=== PATIENT | female | born 1945 | race African-American/Black ===

== ENCOUNTER 2017-04-26 08:34 | Day surgery (SDC) | payer MEDICARE, BC ==
[2017-04-26] VITALS (16 sets, daily range): BP systolic 101–179; BP diastolic 55–96
[~2017-04-26] VITALS: Ht 162.6 cm; Wt 74.4 kg
--- NOTE | 2017-04-26 06:57 | Pre-Procedure Note/Attestation ---
Pre-Procedure Note/Attestation Complete Prior to Procedure Planned Procedure: right Procedure Narrative: rt shoulder scope, sad, mini acosta, rtc repair, possible biceps tenodesis vs tenotomy Indications for Procedure Pre-Operative Diagnosis: rt shoulder rtc tear, biceps tendonitis Attestation I attest that I discussed the nature of the procedure; its benefits; risks and complications; and alternatives (and the risks and benefits of such alternatives ), prior to the procedure, with the patient (or the patient's legal sales representative door to door). I attest that, if there was a reasonable possibility of needing a blood transfusion, the patient (or the patient's legal sales representative door to door) was given the [place] [employer] standardized written summary, pursuant to the Kole Myrna Blood Safety Act ([place] Health and Safety Code # 1645, as amended). I attest that I re-evaluated the patient just prior to the surgery and that there has been no change in the patient's H&P, except as documented below:NONE LINDA MCCLOUD Apr 26, 2017 06:57
[~2017-04-26 08:34] MED LIST: D5 1/2NS 1,000 ML IV SCH; HYDROmorphone 1mg/ml Carpuject SUBQ PRN; Norco 5mg/325mg tab ORAL PRN; ceFAZolin 1gm in D5W 55ml IVP ONE; celeBREX 200mg Cap **SURGERY PATIENTS ONLY ORAL ONE
[2017-04-26] MEDS ORDERED: Ropivacaine 5mg/ml Vial 30ml INJ ONE (09:28)
[2017-04-26] MEDS ORDERED: NS Irrig 4000ml IRRIG ONE ×2 (09:30→10:45)
[2017-04-26] MEDS ORDERED: Ketorolac 30mg Inj ONE (09:30)
[2017-04-26] MEDS ORDERED: Propofol 200mg/20ml IV ONE (09:30)
[2017-04-26] MEDS ORDERED: Nimbex 2mg/ml Inj 10ML IVP ONE (09:30)
[2017-04-26] MEDS ORDERED: Zemuron 50mg/5ml Inj IV ONE (09:30)
[2017-04-26] MEDS ORDERED: NS Irrig 1000ml ONE (09:30)
[2017-04-26] MEDS ORDERED: Succinylcholine 20mg/ml 10ml vial ONE (09:30)
[2017-04-26] MEDS ORDERED: fentaNYL 100 mcg/2 mL IV ONE (09:30)
[2017-04-26] MEDS ORDERED: LR 1000ml ONE (09:30)
[2017-04-26] MEDS ORDERED: Midazolam 2mg/2ml Inj ONE (09:30)
[2017-04-26] MEDS ORDERED: COREG CR20 MG ORAL (09:31)
[2017-04-26] MEDS ORDERED: HUMALOG100 UNIT/4 SUBQ (09:31)
[2017-04-26] MEDS ORDERED: HYDRALAZINE HCL25 M2 PO (09:31)
[2017-04-26] MEDS ORDERED: HYDROCHLOROTHIA25 MG ORAL (09:31)
[2017-04-26] MEDS ORDERED: SOLOSTAR SQ (09:31)
[2017-04-26] MEDS ORDERED: FARXIGA10 MG PO (09:34)
[2017-04-26] MEDS ORDERED: LR 1000ml 1,000 ML IVLG SCH (11:10)
--- NOTE | 2017-04-26 11:10 | Anethesia Preoperative Eval ---
Anesthesia Pre-op PMH/ROS General Date of Evaluation: Apr 26, 2017 Time of Evaluation: 09:50 Anesthesiologist: Bobby ASA Score: ASA 3 Mallampati Score Class I : Soft palate, uvula, fauces, pillars visible Class II: Soft palate, uvula, fauces visible Class III: Soft palate, base of uvula visible Class IV: Only hard plate visible Mallampati Classification: Class III Surgeon: Kd Diagnosis: R shoulder pain Surgical Procedure: R shoulder scope Anesthesia History: none Family History: no anesthesia problems Allergies: Coded Allergies: CODEINE (Verified Allergy, Severe, HIVES, ITCHING , 04/26/17) LATEX (Verified Allergy, Severe, ITCHING, BUMPS, , 04/26/17) Past Medical History Cardiovascular: Reports: HTN, Denies: CAD, AR, valve dz, arrhythmia, other Pulmonary: Denies: asthma, COPD, DULCE MARIA, other Gastrointestinal/Genitourinary: Reports: GERD - mild, Denies: CRI, ESRD, other Neurologic/Psychiatric: Denies: dementia, CVA, depression/anxiety, TIA, other Endocrine: Reports: DM - on high dose of insulin poorly contrilled, Denies: hypothyroidism, steroids, other HEENT: Denies: cataract (L), cataract (R), glaucoma, NOATAK (L), NOATAK (R), other Hematology/Immune: Denies: anemia, DVT, bleeding disorder, other Musculoskeletal/Integumentary: Reports: DJD, Denies: OA, RA, DDD, edema, other Other: other - overweight PMH Narrative: as above PSxH Narrative: Resection of pituitary gland, bilateral breast redaction Knee arthroplasty Anesthesia Pre-op Phys. Exam Physician Exam Last Vital Signs Date Time Temp Pulse Resp B/P (MAP) Pulse Ox O2 Delivery O2 Flow Rate FiO2 04/26/17 09:21 97.8 61 17 101/55 94 Room Air Constitutional: NAD Neurologic: CN 2-12 intact Cardiovascular: RRR, no M/R/G Respiratory: CTA Gastrointestinal: S/NT/ND Airway Exam Mallampati Score: Class III Neck: short ROM: limited Teeth: missing Dentures: no upper, no lower Anesthesia Pre-op A/P Labs see chart Studies Pre-op Studies: EKG - SR, echo - EF>60% Risk Assessment & Plan Assessment: ASA 3 Plan: GA with ETT R brachial plexus block for postoperative pain control Status Change Before Surgery: No Pre-Antibiotics Drug: Ancef 1gr. Given Within 1 Hr of Incision: Yes Time Given: 10:12 EVONNE GROVE M.D. Apr 26, 2017 11:10
[2017-04-26] MEDS ORDERED: Midazolam 2mg/2ml Inj IVP PRN (11:15)
[2017-04-26] MEDS ORDERED: Ketorolac 30mg Inj IV PRN (11:15)
[2017-04-26] MEDS ORDERED: DiphenhydrAMINE 50mg/ml Inj IVP PRN (11:15)
[2017-04-26] MEDS ORDERED: Hydromorphone 0.5mg/0.5ml inj IVP PRN (11:15)
[2017-04-26] MEDS ORDERED: EPINEPHrine 1mg/1ml Amp ONE ×2 (11:21→11:46)
--- NOTE | 2017-04-26 12:42 | Brief Operative Note ---
Immediate Post Operative Note Operative Note Chief Complaint: rt shoulder pain Pre-op Diagnosis: rt shoulder rtc tear Procedure: rt shoulder scope, sad, mini acosta, rtc repair, biceps tenodesis Post-op Diagnosis: same as pre-op Findings: consistent w/pre-op dx studies Surgeon: md kelvin Sprinkler Driver: zion jackman Anesthesiologist: md sharee Anesthesia: general, regional Specimen: none Complications: none Condition: stable Fluids: ns Estimated Blood Loss: minimal Drains: none Implant(s) used?: Yes ADRIAN JACKMAN Apr 26, 2017 12:42
--- NOTE | 2017-04-26 13:11 | Immediate Post-Op Evaluation ---
Immediate Post-Op Evalulation Immediate Post-Op Evalulation Procedure: R shoulder arthroscopy, rotator cuff and biceps tendon repair Date of Evaluation: Apr 26, 2017 Time of Evaluation: 13:10 IV Fluids: 1100 Blood Products: none Estimated Blood Loss: <50 Urinary Output: none Blood Pressure Systolic: 156 Blood Pressure Diastolic: 78 Pulse Rate: 76 Respiratory Rate: 20 O2 Sat by Pulse Oximetry: 98 Temperature (Fahrenheit): 98.1 Pain Score (1-10): 1 Nausea: No Vomiting: No Complications none Patient Status: reacts, patent, extubated, none Hydration Status: adequate EVONNE GROVE M.D. Apr 26, 2017 13:11
--- NOTE | 2017-04-26 13:51 | 48 Hour Post Anesthesia Eval ---
Post Anesthesia Evaluation Procedure: R shoulder arthroscopy, rotator cuff and biceps tendon repair Date of Evaluation: Apr 26, 2017 Time of Evaluation: 13:50 Blood Pressure Systolic: 164 0: 83 Pulse Rate: 74 Respiratory Rate: 20 Temperature (Fahrenheit): 97.8 O2 Sat by Pulse Oximetry: 98 Airway: patent Nausea: No Vomiting: No Pain Intensity: 3 Hydration Status: adequate Cardiopulmonary Status: stable Mental Status/LOC: patient returned to baseline Follow-up Care/Observations: n/a Post-Anesthesia Complications: none Follow-up care needed: ready to discharge EVONNE GROVE M.D. Apr 26, 2017 13:51
--- NOTE | 2017-04-26 18:15 | Operative Note - Dictated ---
DATE OF OPERATION: 04/26/2017 PREOPERATIVE DIAGNOSES: 1. Right shoulder rotator cuff tear. 2. Right shoulder biceps tendon tear. POSTOPERATIVE DIAGNOSES: 1. Right shoulder large subacromial bone spur. 2. Right shoulder L-shaped rotator cuff tear, measuring 2.5 cm. 3. Right shoulder degenerative intra-articular biceps tendon. 4. 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 PROCEDURE: 1. Right shoulder arthroscopy and extensive intra-articular shaving. 2. Right shoulder biceps tenotomy and biceps tenodesis in the intertubercular groove arthroscopically using a Arthrex ToggleLoc 6.25 mm anchor. 3. Right shoulder subacromial bursoscopy, bursectomy, and subacromial decompression. 4. Right shoulder mini-Rajwinder procedure (resection of inferior 30% distal end of the clavicle for coplaning). 5. Right shoulder arthroscopic rotator cuff repair with fixation of the L-shaped tear using 2 Biomet 2.9 mm JuggerKnot anchors. SURGEON: Cuong Vleásquez M.D. ASSEMBLY CLEANER: Sheila Riddle PA-C Laboratory Chemist was present during the actual operative portion of the case and was important and essential part of the operation. During the operation, the library serials assistant held and operated the arthroscopic camera for visualization, assisted by manipulating the arm to help with visualization, and helped with essential parts of the repair process as necessary such as operating surgical instruments under surgeon supervision, suture management, and wound closures. ANESTHESIOLOGIST: Miguel Rosales M.D. ANESTHESIA: General LMA anesthesia. EBL: Less than 20 mL. COMPLICATIONS: None SURGICAL INDICATION: Patient is a 71-year-old female who sustained the above injury to her shoulder. The patient was treated non-operative initially, but this did not alleviate the patients symptoms. Therefore, after discussing all non-surgical and surgical options, and discussing all foreseeable risk and benefits of surgery, the patient opted for surgical treatment as described above. PATIENT POSITIONING: Patient was brought to the operating room table and was placed on the operating room table. All pressure points were well padded. General anesthesia was induced and patient was then placed in the lateral decubitus position. All pressure points were well padded again and an axillary roll was placed. Patient shoulder was then prepped and draped in the usual sterile fashion. Time out was performed and the appropriate preoperative antibiotic was given by the anesthesiologist. EXAMINATION OF SHOULDER UNDER ANESTHESIA: The shoulder was examined under anesthesia with all muscles well relaxed. The shoulder was forward flexed, abducted and was placed through full range of external and internal rotation. The anterior, posterior, and inferior stability of the shoulder was checked. The exam revealed no evidence of adhesive capsulitis and no evidence of instability. PORTAL PLACEMENT: The posterior portal was established 2 cm inferior and 1 cm medial to the edge of the posterior acromion. 1 cm skin incision was made using an eleven blade and using the blunt obturator, the cannula was gently placed through the capsule. The midglenoid portal was established just lateral to the coracoid process under direct visualization. Direction of the cannula was first established using a spinal needle, and subsequently, the cannula was placed through the capsule with a blunt obturator. DIAGNOSTIC ARTHROSCOPY: The biceps tendon was probed and pulled through the joint for visualization. There was extensive degeneration of biceps tendon with fraying intra-articularly. This involved 75% of the biceps tendon. The biceps anchor was palpated with a probe and was visualized. It appeared well attached and there was no evidence of SLAP tear. The posterior labrum and axillary recess was visualized. This was normal and there was no evidence of loose cartilage or fragments in this area. The glenoid articular surface was visualized and it appeared normal. The articular surface of the rotator cuff was visualized and probed next. There was a full-thickness rotator cuff tear measuring 2.5 cm. This later proved to be a L-shaped tear once viewed from the subacromial space. The Humeral head articular surface was then visualized. There was no evidence of articular cartilage damage. Next the anterior labrum, middle gleno-humeral ligament, subscapularis tendon, and the anterior inferior gleno-humeral ligament were evaluated. These structures were completely normal. At this point, the scope was moved to the midglenoid portal and the posterior structures including the posterior labrum, posterior capsule and posterior cuff were visualized. These structures were completely normal. The subscapularis recess was devoid of any loose bodies and the anterior capsule was well attached to the humeral neck. The middle and anterior inferior glenohumeral ligament was visualized. These structures were completely normal. OPERATIVE DEBRIDEMENTS AND REPAIR: Care was given to all partial thickness tears and frayed structures in the shoulder joint. The frayed rotator cuff and labrum was debrided using a shaver initially through the anterior portal and subsequently through the posterior portal to complete the debridement. This allowed for smooth debridement of all affected structures and all loose fragments were removed. At this point, a biceps tenotomy was performed and a suture and a FiberWire suture was placed to the biceps tendon prior to tenotomizing it to allow control and for later fixation in the bicipital tuberosity. DIAGNOSTIC BURSASCOPY AND SUBACROMIAL DECOMPRESSION: The subacromion bursa was entered from the posterior portal. The anterior portal was established under the CA ligament using a switching stick. Subacromial arthroscopy was initiated. There was extensive bursitis and thickened and inflamed bursa tissue present. The CA ligament appeared to be scuffed and frayed. The shaver was placed through the anterior cannula and debridement of the hypertrophic bursa tissue was accomplished. Once visualization was adequate, a lateral portal was established using a blunt trochar in the mid portion of the acromion bone in the anterior-posterior direction and approximately 2 cm lateral to the lateral edge of the acromion. Using combination of shaver and electrocautery the CA ligament was released from the undersurface of the acromion and a complete bursectomy was accomplished. At this point, a subacromial decompression was performed using a jaqueline initially taking off 5-8 mm of the anterolateral edge of the acromion from the lateral portal and viewing from the posterior portal. Then the lateral border of the undersurface of the acromion was decompressed to the same dept as the anterolateral edge. A posterior trough was then created in the acromion in line with the posterior edge of the clavicle. At this point, the scope was placed in the lateral portal and the subacromial decompression was performed from the posterior portal decompressing the undersurface of the acromion to dept of 5-8 mm. The decompression was performed anterior to the previously marked trough all the way medially to the level of the AC joint. At all times, care was given not to take off too much bone in order to avoid risk of fracture of the acromion. An excellent subacromial decompression was performed in this fashion. At this point, the bursal side of the rotator cuff was examined. All the bursa over the rotator cuff was removed and the rotator cuff was examined with a probe. The arm was placed into external rotation, neutral, and then internal rotation and There was evidence of a L-shaped rotator cuff tear measuring 2.5 cm. The scope was then placed in the posterior portal and the subacromial decompression was rechecked to assure there is no area of bone spur that would be still impinging onto the rotator cuff. EVALUATION OF DISTAL CLAVICLE AND DISTAL CLAVICLE RESECTION: Care was given to the distal end of the clavicle. Using electrocautery and beronica, the distal end of the bursa and soft tissue around the distal end of the clavicle was debrided and cleaned. Care was given not to inflict excessive trauma to the ligaments of the AC joint. The distal end of the clavicle appeared to have an inferior osteophyte extending down well bellow the level of the acromion at the level of the AC joint. This appeared to be impinging onto the supraspinatus muscle belly and the musculotendinous junction of the rotator cuff. A mini-Rajwinder procedure was performed by using a jaqueline to resect the inferior 30% of the distal end of the clavicle. This decompression allowed space for the inferior structures to slide without impingement. This co-plained the inferior edge of the distal clavicle with the inferior edge of the acromion The scope was placed in the lateral portal and the rotator cuff was visualized. The rotator cuff revealed a L-shaped 2.5 cm rotator cuff tear. The rotator cuff foot print adjacent to the articular cartilage of the humeral head was identified. This area was debrided initially using beronica and subsequently using jaqueline to provide adequate bleeding bony surface to accept the rotator cuff tendon. Attention was given to repair the rotator cuff with as little tension as possible. At this point, an arthroscopic punch was used to create holes for suture anchor placement at the medial edge of the foot print through separate stab wound incisions and an arthroscopic tap was used to prepare the holes. Two Biomet 2.9 mm JuggerKnot anchors double loaded with two #2 non-absorbable strong sutures were placed in previously prepared holes. Using standard arthroscopic suture passing instruments, the sutures were passed through the edge of rotator cuff with minimal trauma to the cuff tissue. Care was given to obtain large enough bites of the rotator cuff for the sutures to hold well. Once the sutures were passed through the cuff, the repair was secured onto the rotator cuff foot print using SMC sliding knots followed by 3 alternating-post half hitches. This allowed tension free repair of the rotator cuff with excellent stability and water tight closure. The cuff repair security was assured by palpating the repair with a probe. Once the rotator cuff repair was completed, care was given to biceps tendon tenodesis. The area of the intertubercular groove was debrided and using the ArthroCare device, this was cleaned out. At this point, a 6.5 mm drill was used to drill a socket within the intertubercular groove, and a 6.25 mm anchor was used to dunking the biceps tendon into the into the socket. This provided excellent stability and excellent repair of the biceps tendon was obtained. Once this was completed, care was given to the evaluation of the repair. The repair of the biceps tendon was checked and rechecked using a probe. There was excellent stability of the biceps tendon. CONDITION AT DISCHARGE FROM OPERATING ROOM: The skin was re-approximated and sterile dressing and sling were applied. All lap counts and instrument counts were correct. Patient tolerated the procedure well without complications and was taken to the recovery room in stable conditions. Cuong Velásquez M.D. DR: WILLA JOB#: [id number] CC:
== END 2017-04-26 15:45 | disposition home or self-care (01) ==
LOC: SUR 08:34
DX: M75.101 Unspecified rotator cuff tear or rupture of right shoulder, not specified as traumatic (principal); M75.91 Shoulder lesion, unspecified, right shoulder; M19.011 Primary osteoarthritis, right shoulder; E11.9 Type 2 diabetes mellitus without complications; I10 Essential (primary) hypertension; Z96.659 Presence of unspecified artificial knee joint; Z88.2 Allergy status to sulfonamides; Z82.49 Family history of ischemic heart disease and other diseases of the circulatory system; K21.9 Gastro-esophageal reflux disease without esophagitis; E78.5 Hyperlipidemia, unspecified; Z79.4 Long term (current) use of insulin
CPT/HCPCS: 29824; 29826; 29827; 29828; 82962; C1713; J0171; J0330; J0360; J0690; J1170; J1815; J1885; J2250; J2405; J2704; J2795; J3010; J7120; 94003; 94150